=== PATIENT | female | born 1955 | race African-American/Black ===

== ENCOUNTER 2017-06-16 17:30 | Emergency (ER) | payer MEDICAID ==
[~2017-06-16] VITALS: Ht 165.1 cm; Wt 69.0 kg
[2017-06-16 18:48] VITALS: BP 114/82
== END 2017-06-16 18:51 | disposition home or self-care (01) ==
LOC: ER 17:48
DX: F41.1 Generalized anxiety disorder (principal); F17.210 Nicotine dependence, cigarettes, uncomplicated; Z71.6 Tobacco abuse counseling; Z88.0 Allergy status to penicillin; Z90.710 Acquired absence of both cervix and uterus
CPT/HCPCS: 99283; 99406